=== PATIENT | female | born 1945 | race Caucasian/White ===

== ENCOUNTER → 2019-08-29 21:48 | Outpatient (CLI) | payer MEDICARE, SELFPAY ==
[2019-08-29 14:56] VITALS: BMI 25.2
[2019-08-29 21:58] LABS: Absolute Lymphocyte Count 1.15 X10^3/uL (0.83-4.51); Absolute Neutrophil Count 2.4 X10^3/uL (2.0-7.7); Basophil# 0.01 X10^3/uL; Basophil% 0.3 % (0-1); Hematocrit 44.2 % (37-47); Hemoglobin 14.2 g/dL (12.0-15.0); Lymphocyte # 1.15 X10^3/ul (4.0); Lymphocyte % 30.6 % (19-41); Mean Corp Hgb Conc 32.1 g/dL (32-36); Mean Corpuscular Hgb 30.1 pg (27.0-32.0); Mean Corpuscular Volume 93.8 fL (81-99); Monocyte# 0.24 X10^3/uL; Monocyte% 6.4 % (0-10); NRBC Flagged by Analyzer 0 % (0-5); Neutrophil # 2.35 X10^3/uL (2.7-7.7); Neutrophil % 62.4 % (47-70); Platelet Count 159 K/mm3 (150-450); RBC Distribution Width CV 12.4 % (11.6-14.6); RBC Distribution Width SD 43.3 fl (35.1-43.9); Red Blood Count 4.71 M/mm3 (4.2-5.4); White Blood Count 3.8 K/mm3 (4.4-11.0)
[2019-08-29 22:13] LABS: AST(SGOT) 51 U/L (15-37); Alanine Aminotransfer ALT/SGPT 56 U/L (13-56); Albumin, Serum 3.5 g/dL (3.2-5.0); Alkaline Phosphatase 142 U/L (45-117); Anion Gap 6 (5-15); BUN 9 mg/dL (7-18); BUN/Creat Ratio 13.1 RATIO (10-20); CRP, High Sensitivity Cardiac 1.02 mg/L; Calcium,Total 8.6 mg/dL (8.5-10.1); Chloride 106 mmol/L (98-107); Cholesterol 140 mg/dL (200); Creatinine, Serum 0.68 mg/dL (0.55-1.02); EST Glomerular Filtration Rate 89 mL/min (>60); Est Glom Filt Rate - Afr Amer 107 mL/min (>60); Globulin 3.4 g/dL (2.2-4.2); Glucose 100 mg/dL (74-106); High Density Lipoprotein 57 mg/dL; Potassium 4.2 mmol/L (3.5-5.1); Protein, Total 6.9 g/dL (6.4-8.2); Sodium Level 140 mmol/L (136-145); Triglycerides 91 mg/dL; Very Low Density Lipoprotein 18 mg/dL (5-40)
== END ==
PROVIDERS: Referring Provider Nurse Practitioner; Visit Provider Nurse Practitioner
DX: J40 Bronchitis, not specified as acute or chronic (principal); R07.9 Chest pain, unspecified
CPT/HCPCS: 80053; 80061; 84484; 85025; 86141

== ENCOUNTER → 2021-03-19 21:13 | Outpatient (CLI) | payer MEDICARE, SELFPAY ==
--- NOTE | 2021-03-19 21:14 | LES_PTH ---
PATIENT: DANIS OLVERA LOC: [facility] U#:[id number] AGE/SX: 80/F ROOM: RE03/19/[address]: RAQUEL Harper : 1945 BED: DIS: SPEC #: [id number] RECD: 03/20/21 09:25 STATUS: BISI HAN #: [id number] FAVIOLA: 03/19/21 21:[address]: Nivia Angel NP DEPT: SURGICAL PATHOLOGY RECD BY: Maribeth Villafana Tissues: Skin of hand and finger, NOS Procedures: Surgery Specimen Level IV HEADER OPERATION: Skin biopsy PRE-OP DIAGNOSIS: Left hand palm lesion TISSUE SUBMITTED: Left hand palm lesion MICROSCOPIC DIAGNOSIS Left hand palm lesion, biopsy: Basal cell carcinoma, fragmented. ENDER:tonya 03/21/2021 MICROSCOPIC DESCRIPTION Slides are reviewed. GROSS DESCRIPTION Received in fixative is one container labeled with the patient's name and designated left palm lesion vs wart. The specimen consists of multiple irregular fragments of das soft tissue that in aggregate measure 1 x 0.3 x 0.1 cm. The specimen is totally submitted in one cassette. / SJ:rg 03/20/21 TC:0 CPT: 20708
[2021-03-19 21:16] LABS: Pathology Skin Biopsy SEE PATHOLOGY REPORT
== END ==
PROVIDERS: Visit Provider Nurse Practitioner
DX: L98.9 Disorder of the skin and subcutaneous tissue, unspecified (principal)
CPT/HCPCS: 88305

== ENCOUNTER 2024-06-19 07:47 | Emergency (ER) | payer MEDICARE, SELFPAY ==
[2024-06-19 07:48] VITALS: BP 148/83; PULSE 86; RESP 16; TEMP 36.6; O2SAT 98; BMI 22.6
--- NOTE | 2024-06-19 08:23 | CT_ITS ---
HISTORY: Pain. TECHNIQUE: Helically acquired images were obtained of the abdomen and pelvis without oral or IV contrast. A radiation dose optimization technique was used for this scan. 414 images. COMPARISON: None. FINDINGS: LOWER CHEST: Lung bases clear. BOWEL: Bowel including appendix nondilated. No focal pericolonic inflammatory change. PERITONEUM: No significant free fluid. LIVER: Unremarkable. GALLBLADDER/BILIARY TREE: Absent gallbladder. SPLEEN: Calcified granulomas. PANCREAS/ADRENAL GLANDS: Nonenlarged. KIDNEYS AND URETERS: 2 mm right lower pole calculus. Mild bilateral hydronephrosis and distended extrarenal pelves without hydroureter or obstructing ureteral calculus identified. VESSELS: No abdominal aortic aneurysm. Mild atherosclerosis. PELVIC ORGANS: Absent uterus. BONES: Degenerative change and mild scoliosis. CT/Abdomen/Pelvis without Cont IMPRESSION: Mild bilateral hydronephrosis without hydroureter or obstructing ureteral calculus identified. 2 mm right renal calculus. Electronically Signed: Maria C Shin MD at 9:33 EST ,
--- NOTE | 2024-06-19 08:24 | EKG12_ITS ---
Test Reason : ABD PAIN Blood Pressure : */* mmHG Vent. Rate : 73 BPM Atrial Rate : 73 BPM P-R Int : 142 ms QRS Dur : 92 ms QT Int : 382 ms P-R-T Axes : -4 5 36 degrees QTcB Int : 420 ms Normal sinus rhythm Incomplete right bundle branch block Nonspecific T wave abnormality Abnormal ECG Confirmed by Albino Amador ([id number]), assignment editor JENNIFER MARIA ([id number]) on 06/21/2024 10:27:36 AM Referred By: Confirmed By: Albino Amador
--- NOTE | 2024-06-19 08:25 | EDS_ITS ---
HPI HPI - GI History of Present Illness Chief Complaint: Abd Pain Informant: patient Narrative Narrative: Patient is an 79-year-old female with history of constipation, partial hysterectomy and cholecystectomy presenting with diffuse abdominal pain. She states about 3 days ago she thought she something bad and had some crampy abdominal pain. She multiple bowel movements and her last 1 was loose. She felt better the next day but then starting yesterday she has had worsening abdominal pain again. She states that initial episode is not uncommon for her but the symptoms she is been having in the past day is new and unusual. She no raymond she had a small bowel movement yesterday morning. She denies any black or blood in her stool. She has associated nausea but no vomiting. She describes the pain more as a warmth and cramping sensation. She has a hard time localizing it but notes it does radiate to her back. She denies associated chest pain or shortness of breath. Denies any urinary symptoms. Has not had any vomiting. No other complaints or concerns reported at this time. [facility] Medical History (Updated 06/19/24 @ 10:[address] Alivia Mason DO) Asthma Home Medications ?Medication ?Instructions ?Recorded ?Last Taken ?Type famotidine 20 mg tablet (Pepcid) 20 mg PO DAILY #14 tabs 06/19/24 Unknown Rx ondansetron 4 mg disintegrating 4 mg PO Q8H PRN PRN Nausea #10 tabs 06/19/24 Unknown Rx tablet Allergy/AdvReac Type Severity Reaction Status Date / Time Iodinated Contrast Media (CT) Allergy Severe Hives Verified 06/19/24 07:47 Family History Other Cancer Heart disease Surgical History History of cholecystectomy History of total abdominal hysterectomy History of bladder suspension procedure Social History Smoking Status: Never smoker second hand exposure: No ROS ROS ED Constitutional Constitutional ED: Denies chills or fever(s) Respiratory/Chest Respiratory/Chest: Denies cough or dyspnea Gastrointestinal Gastrointestinal: Reports abdominal pain and nausea; Denies diarrhea or vomiting Genitourinary Genitourinary ED: Denies dysuria, hematuria or urinary frequency Musculoskeletal Musculoskeletal: Denies arthralgias or myalgias Neurologic Neurologic: Denies headache(s) or weakness Hematologic/Lymphatic Hematologic/Lymphatic: Denies easy bleeding or easy bruising EXAM Physical Exam Const Vital Signs: 06/19/24 07:48 Temperature 97.8 F Temperature Source Oral Pulse Rate 86 Respiratory Rate 16 Blood Pressure 148/83 H Blood Pressure Mean 104 Pulse Ox 98 Oxygen Delivery Method Room Air Positive well nourished and well developed General Appearance ED: well developed and NAD HEENT Reports moist mucous membranes normocephalic and atraumatic Eyes PERRL Neck supple Resp normal respiratory effort and clear to auscultation bilaterally Cardio regular rate and regular rhythm GI non-tender and no masses Inspection: Negative for abdominal distention Auscultation: hypoactive bowel sounds Palpation: soft; Negative for tender, guarding or rigid Back/Spine no CVA tenderness Extremity full ROM General Extremety ED: Negative for edema General Extremity: Negative for edema Neuro Sensorium / Orientation: alert, oriented to person, oriented to place and oriented to time Motor Exam: Negative for general weakness Psych mental status grossly normal and thought process normal Skin no wounds MDM MDM MDM Narrative Medical decision making narrative: Patient evaluated for diffuse abdominal pain. Has associated nausea. Differential includes referred ACS, diverticulitis, small bowel obstruction, ileus, pancreatitis, choledocholithiasis and urinary tract infection. Patient given Tylenol and Zofran. Vital signs normal. Will obtain workup including CT abdomen pelvis, CBC, CMP, lipase and urinalysis. Lab work largely normal. Patient is not have a leukocytosis or anemia. She is have a mild elevation of her alkaline phosphatase as well as bilirubin but she has normal AST and ALT as well as normal lipase. Urinalysis is not consistent with infection and no bacteria are seen. CT of the abdomen and pelvis does not show any acute process but does show mild bilateral hydronephrosis without hydroureter or obstructing ureteral calculus. There is a 2 mm right renal calculus. This is not consistent with her symptoms or presentation I suspect this is more of an incidental finding. Patient is informed of this and is given outpatient urology follow-up for this. EKG is not consistent with acute ischemia and I do not think further cardiac workup is indicated at this time. Patient does tell me that she has been more gassy lately with more belching and passing gas. Will start her on Pepcid which do not take a daily antiacid and also give a prescription for as needed Zofran. I repeat evaluation she states she is feeling a little better. Will discharge home. Counseled the exact cause her symptoms is not clear but she should return to the emergency room if she has progression or worsening of her symptoms specifically if she develops severe abdominal pain, blood in her stool, vomiting or fever. Encouraged to follow-up with her primary care doctor. Discharged home in improved and stable condition. Lab Data Labs: Laboratory Results - last 24 hr 06/19/24 06/19/24 08:26 09:40 WBC 6.0 RBC 4.60 Hgb 14.2 Hct 43.7 MCV 95.0 MCH 30.9 MCHC 32.5 RDW Std Deviation 43.7 RDW Coeff of Vidya 12.4 Plt Count 208 MPV 9.4 Immature Gran % (Auto) 0.200 Neut % (Auto) 82.9 H Lymph % (Auto) 12.6 L Guthrie % (Auto) 3.8 Eos % (Auto) 0.2 Baso % (Auto) 0.3 Absolute Neuts (auto) 5.0 Absolute Lymphs (auto) 0.76 L Nucleated RBC % 0 Sodium 140 Potassium 3.7 Chloride 105 Carbon Dioxide 26.0 Anion Gap 9 BUN 16 Creatinine 0.78 Estim Creat Clear Calc 39.62 Est GFR (MDRD) Af Amer 91 Est GFR (MDRD) Non-Af 75 BUN/Creatinine Ratio 20.5 H Glucose 113 H Calcium 9.1 Total Bilirubin 1.90 H AST 12 L ALT 16 Alkaline Phosphatase 150 H Total Protein 7.0 Albumin 3.7 Globulin 3.3 Albumin/Globulin Ratio 1.1 Lipase 37 Urine Color Yellow Urine Clarity Sl. Cloudy Urine pH 6.5 Ur Specific Sieper 1.010 Urine Protein 15 H Urine Glucose (UA) Normal Urine Ketones 15 H Urine Occult Blood 10 H Urine Nitrite Negative Urine Bilirubin Negative Urine Urobilinogen Normal Ur Leukocyte Esterase 100 H Urine RBC 0 SEEN Urine WBC 0-5 SEEN Ur Squamous Epith Cells 0-5 SEEN Urine Bacteria 0 SEEN Urine Mucus 0 SEEN Radiography Diagnostic Testing: Clinical Impression(s) from Imaging Studies Abdomen/Pelvis CT 06/19/24 08:23 IMPRESSION: Mild bilateral hydronephrosis without hydroureter or obstructing ureteral calculus identified. 2 mm right renal calculus. Electronically Signed: Maria C N. Kip, MD at 9:33 EST , Rhythm Strip Rhythm Strip: Sinus Rhythm Rate: 73 Ectopy: None EKG Initial EKG: Attestation: I personally reviewed and interpreted this EKG as follows: Interpretation: Sinus Rhythm Comments: Normal sinus rhythm rate of 73 bpm Normal axis Normal intervals with incomplete right bundle branch block Normal ST segments Discharge Plan Triage Chief Complaint: Abd Pain ED Provider: Alivia Mason Dx/Rx/DC Orders Clinical Impression: Nausea, Abdominal discomfort, Bilateral hydronephrosis Instructions: ED Abdominal Pain Unkn Cause Fem Prescriptions: New famotidine [Pepcid] 20 mg tablet 20 mg PO DAILY Qty: 14 0RF ondansetron 4 mg tablet,disintegrating 4 mg PO Q8H PRN PRN (Reason: Nausea) Qty: 10 0RF Primary Care Provider: Nivia Angel Referrals: Maya Gonzalez MD [Med Staff - Active Staff] - 1-2 Weeks Nivia Angel [Primary Care Provider] - Activity Restrictions/Additional Instructions: Your lab work today was largely normal. Your CT did not show any acute cause of your symptoms but did see that you have some increased fluid of the bilateral kidneys. The cause of this is uncertain but you been given a urologist to fol low-up with. Please call to schedule follow-up appointment. Please follow-up with your primary care doctor as needed with your symptoms. I have started you on an antacid and given you an as needed nausea medicine to see if this helps with your symptoms. Print Language: [place] Citizen Disposition Disposition: Home, Self Care
[2024-06-19 08:37] LABS: Absolute Lymphocyte Count 0.76 X10^3/uL (0.83-4.51); Basophil# 0.02 X10^3/uL; Basophil% 0.3 % (0-1); Eosinophil# 0.01 X10^3/uL; Eosinophils% 0.2 % (0-5); Hematocrit 43.7 % (37-47); Hemoglobin 14.2 g/dL (12.0-15.0); Lymphocyte # 0.76 X10^3/ul (0.83-4.51); Lymphocyte % 12.6 % (19-41); Mean Corp Hgb Conc 32.5 g/dL (32-36); Mean Corpuscular Hgb 30.9 pg (27.0-32.0); Mean Platelet Vol. 9.4 fl (6.2-12.0); Monocyte# 0.23 X10^3/uL; Monocyte% 3.8 % (0-10); NRBC Flagged by Analyzer 0 % (0-5); Neutrophil # 4.98 X10^3/uL (2.7-7.7); Neutrophil % 82.9 % (47-70); Platelet Count 208 K/mm3 (150-450); RBC Distribution Width CV 12.4 % (11.6-14.6); RBC Distribution Width SD 43.7 fl (35.1-43.9)
[2024-06-19 08:57] LABS: ALB/GLOB Ratio 1.1 RATIO (0.9-2.4); AST(SGOT) 12 U/L (15-37); Alanine Aminotransfer ALT/SGPT 16 U/L (13-56); Albumin, Serum 3.7 g/dL (3.2-5.0); Alkaline Phosphatase 150 U/L (45-117); Anion Gap 9 (5-15); BUN 16 mg/dL (7-18); BUN/Creat Ratio 20.5 RATIO (10-20); Calcium,Total 9.1 mg/dL (8.5-10.1); Chloride 105 mmol/L (98-107); Creatinine, Serum 0.78 mg/dL (0.55-1.02); EST Glomerular Filtration Rate 75 mL/min (>60); Est Glom Filt Rate - Afr Amer 91 mL/min (>60); Estimated Creatinine Clearance 39.62 ml/min; Globulin 3.3 g/dL (2.2-4.2); Glucose 113 mg/dL (74-106); Lipase 37 U/L (13-75); Potassium 3.7 mmol/L (3.5-5.1); Sodium Level 140 mmol/L (136-145)
[2024-06-19] MEDS: Acetaminophen 325 MG Tablet 650 MG PO (09:06)
[2024-06-19] MEDS: Ondansetron 4 MG/2 ML Vial IV (09:06)
[2024-06-19 09:47] LABS: Bacteria 0 SEEN /hpf (None Seen); Mucous, Urine 0 SEEN /hpf (<or=2+); Red Blood Cells-Urine 0 SEEN /hpf (0-5)
[2024-06-19 09:49] LABS: Color, Urine Yellow (Yellow); Glucose, Dipstick Normal (Normal); Ketone-Dipstick 15 mg/dl (Negative); Leukocyte Esterase-Dipstick 100 /ul (Negative); Nitrite-Dipstick Negative (Negative); Occult Blood-Urine 10 /ul (Negative); Protein-Dipstick 15 mg/dl (Negative); Urine Bilirubin Dipstick Negative (Negative); Urine Clarity Sl. Cloudy (Clear); Urine Urobilinogen Normal (Normal); Urine pH 6.5 (5.0 - 8.0)
[2024-06-19 09:56] LABS: Squamous Epithelial Cells - UA 0-5 SEEN /hpf (5-10); White Blood Cells 0-5 SEEN /hpf (0-5)
[2024-06-19 10:58] VITALS: BP 138/62; PULSE 67; RESP 15; TEMP 36.7; O2SAT 96
[2024-06-19] MEDS: Famotidine 20 MG Tablet PO (11:39)
== END 2024-06-19 11:40 | disposition home or self-care (01) ==
PROVIDERS: Emergency Provider Emergency Medicine; Visit Provider Emergency Medicine
DX: N13.30 Unspecified hydronephrosis (principal); R11.0 Nausea; N20.0 Calculus of kidney; Z90.710 Acquired absence of both cervix and uterus; Z90.49 Acquired absence of other specified parts of digestive tract; I45.10 Unspecified right bundle-branch block
CPT/HCPCS: 74176; 80053; 81001; 83690; 85025; 93005; 96374; 99284; A4216; J2405

== ENCOUNTER → 2025-06-14 | Outpatient (CLI) | payer MEDICARE, SELFPAY ==
--- OUTSIDE RECORDS SUMMARY | 2025-06-14 21:22 | XMS RPT_ITS | CCD ---
Author Organization [facility] ion Partnership [facility] Care Team Providers Care Shade Bander Name Role Phone LAYO ANGEL Primary Care Unavailable BRENTON MANNING Attending Unavailable Alivia Mason Attending Unavailable Layo Angel Primary Care Unavailable Allergies Allergy Classification Reported Allergen(s) Allergy Type Date of Onset Reaction(s) Facility (1 source) Iodine; Translations: [IODINE] Drug Allergy 10-23-2017 [facility] Other [facility] (1 source) Iodinated Contrast Media Drug allergy (disorder) 06-19-2024 [facility] Repository Problems Problem Classification Problem Date Documented Da te Episodic/Chronic Abdominal pain (1 source) Unspecified abdominal pain; Translations: [Unspecified abdominal pain] Onset: 08-24-2024 Episodic Other upper respiratory disease (1 source) Nasal congestion; Translations: [Nasal congestion] Onset: 03-18-2024 Episodic Unclassified (1 source) Facial pain; Translations: [Facial pain] Onset: 03-18-2024 Results Test Name Value Interpretation Reference Range Facil ity 12 Lead EKGon 06-19-2024 12 Lead EKG [facility] Cardiovascular Services [address] [place] [address] 12 Lead EKG 06/19/24 0858 MR#: [id number] Acct: [id number] Name: PAULINE OLVERA Rep #: [id number] : 1945 79 From: Albino Amador MD Attending Dr: Status: DEP ER Ordering Dr: Alivia Mason DO Date: 06/19/24 Location: ED Sex: F C Admitted: Test Reason : ABD PAIN Blood Pressure : */* mmHG Vent. Rate : 73 BPM Atrial Rate : 73 BPM P-R Int : 142 ms QRS Dur : 92 ms QT Int : 382 ms P-R-T Axes : -4 5 36 degrees QTcB Int : 420 ms Normal sinus rhythm Incomplete right bundle branch block Nonspecific T wave abnormality Abnormal ECG Confirmed by Albino Amador ([id number]), photo editor JENNIFER MARIA ([id number]) on 06/21/2024 10:27:36 AM Referred By: Confirmed By: Albino Amador 06/21/24 1027 Date Albino Amador MD CC: Layo Angel; Dr. Alivia Mason DO Signed Normal [facility] Abdomen/Pelvis without Conto n 06-19-2024 Abdomen/Pelvis without Cont [facility] Imaging Services [address] [place], [place] [address] Abdomen/Pelvis without Cont MR#: [id number] Acct: [id number] Name: PAULINE OLVERA Rep #: [id number] : 1945 F 79 From: Maria C moulton MD PCP: Layo Angel Status: REG ER Study: Abdomen/Pelvis without Cont Date of Exam: 05/28 11/17 Exam# [id number] Ordering Dr: Alivia Mason DO [id number] HISTORY: Pain. TECHNIQUE: Helically acquired images were obtained of the abdomen and pelvis without oral or IV contrast. A radiation dose optimization technique was used for this scan. 414 images. COMPARISON: None. FINDINGS: LOWER CHEST: Lung bases clear. BOWEL: Bowel including appendix nondilated. No focal pericolonic inflammatory change. PERITONEUM: No significant free fluid. LIVER: Unremarkable. GALLBLADDER/BILIARY TREE: Absent gallbladder. SPLEEN: Calcified granulomas. PANCREAS/ADRENAL GLANDS: Nonenlarged. KIDNEYS AND URETERS: 2 mm right lower pole calculus. Mild bilateral hydronephrosis and distended extrarenal pelves without hydroureter or obstructing ureteral calculus identified. VESSELS: No abdominal aortic aneurysm. Mild atherosclerosis. PELVIC ORGANS: Absent uterus. BONES: Degenerative change and mild scoliosis. CT/Abdomen/Pelvis without Cont IMPRESSION: Mild bilateral hydronephrosis without hydroureter or obstructing ureteral calculus identified. 2 mm right renal calculus. Electronically Signed: Maria C Shin MD at 9:33 EST , CC: Lyao Angel; Dr. Alivia Mason DO Marketing Underwriter: Signed Normal [facility] CBC W/Diff, Automatedon 05-28 Absolute Lymph 0.76 X10 3/uL Low 0.83-4.51 [facility] Comment on above: Performed By: #### L 500.4050, L100.0100, L501.2450 #### [facility] [address] [place], [address] Absolute Neut 5.0 X10 3/uL Normal 2.0-7.7 [facility] Comment on above: Performed By: #### L 500.4050, L100.0100, L501.2450 #### [facility] [address] [place], [address] Basophils/100 WBC (Bld) 0.3 % Normal 0-1 [facility] Comment on above: Performed By: #### L 500.4050, L100.0100, L501.2450 #### [facility] [address] [place], [address] Eosinophils/100 WBC (Bld) 0.2 % Normal 0-5 [facility] Comment on above: Performed By: #### L 500.4050, L100.0100, L501.2450 #### [facility] [address] [place], [address] Erythrocyte distribution width (RBC) [Ratio] 12.4 % Normal 11.6-14.6 [facility] Comment on above: Performed By: #### L 500.4050, L100.0100, L501.2450 #### [facility] [address] [place], [address] Hematocrit (Bld) [Volume fraction] 43.7 % Normal 37-47 [facility] Comment on above: Performed By: #### L 500.4050, L100.0100, L501.2450 #### [facility] [address] [place], [address] Hemoglobin (Bld) [Mass/Vol] 14.2 g/dL Normal 12.0-15.0 [facility] Comment on above: Performed By: #### L 500.4050, L100.0100, L501.2450 #### [facility] [address] [place], [address] IG% 0.200 Normal 0.0-0.9 [facility] Comment on above: Result Comment: IG% - Immature Granulocytes (promyelocytes, myelocytes and metamyelocytes) > 1% indicates that a LEFT SHIFT is Present. Performed By: #### L 500.4050, L100.0100, L501.2450 #### [facility] [address] [place], [address] Lymphocytes/100 WBC (Bld) 12.6 % Low 19-41 [facility] Comment on above: Performed By: #### L 500.4050, L100.0100, L501.2450 #### [facility] [address] [place], [address] MCH (RBC) [Entitic mass] 30.9 pg Normal 27.0-32.0 [facility] Comment on above: Performed By: #### L 500.4050, L100.0100, L501.2450 #### [facility] [address] [place], [address] MCHC (RBC) [Mass/Vol] 32.5 g/dL Normal 32-36 [facility] Comment on above: Performed By: #### L 500.4050, L100.0100, L501.2450 #### [facility] [address] [place], [address] MCV (RBC) [Entitic vol] 95.0 fL Normal 81-99 [facility] Comment on above: Performed By: #### L 500.4050, L100.0100, L501.2450 #### [facility] [address] [place], [address] Monocytes/100 WBC (Bld) 3.8 % Normal 0-10 [facility] Comment on above: Performed By: #### L 500.4050, L100.0100, L501.2450 #### [facility] [address] [place], [address] Neutrophils/100 WBC (Bld) 82.9 % High 47-70 [facility] Comment on above: Performed By: #### L 500.4050, L100.0100, L501.2450 #### [facility] [address] [place], [address] Nucleated RBC (Bld) [#/Vol] 0 10*3/uL Normal 0-5 [facility] Comment on above: Performed By: #### L 500.4050, L100.0100, L501.2450 #### [facility] [address] [place], [address] Platelet mean volume (Bld) [Entitic vol] 9.4 fL Normal 6.2-12.0 [facility] Comment on above: Performed By: #### L 500.4050, L100.0100, L501.2450 #### [facility] [address] [place], [address] Platelets (Bld) [#/Vol] 208 10*3/uL Normal 150-450 [facility] Comment on above: Performed By: #### L 500.4050, L100.0100, L501.2450 #### [facility] [address] [place], [address] RBC (Bld) [#/Vol] 4.60 10*6/uL Normal 4.2-5.4 [facility] Comment on above: Performed By: #### L 500.4050, L100.0100, L501.2450 #### [facility] [address] [place], [address] RDW SD 43.7 fl Normal 35.1-43.9 [facility] Comment on above: Performed By: #### L 500.4050, L100.0100, L501.2450 #### [facility] [address] [place], [address] WBC (Bld) [#/Vol] 6.0 10*3/uL Normal 4.4-11.0 [facility] Comment on above: Performed By: #### L 500.4050, L100.0100, L501.2450 #### [facility] [address] [place], [address] Comprehensive Metabolic Prof [facility] 06-19-2024 Albumin [Mass/Vol] 3.7 g/dL Normal 3.2-5.0 [facility] Comment on above: Performed By: #### L 500.4050, L100.0100, L501.2450 #### [facility] [address] [place], [address] Albumin/Globulin [Mass ratio] 1.1 {ratio} Normal 0.9-2.4 [facility] Comment on above: Performed By: #### L 500.4050, L100.0100, L501.2450 #### [facility] [address] [place], [address] ALK P 150 U/L High 45-117 [facility] Comment on above: Performed By: #### L 500.4050, L100.0100, L501.2450 #### [facility] [address] [place], [address] ALT [Catalytic activity/Vol] 16 U/L Normal 13-56 [facility] Comment on above: Performed By: #### L 500.4050, L100.0100, L501.2450 #### [facility] [address] [place], [address] AST [Catalytic activity/Vol] 12 U/L Low 15-37 [facility] Comment on above: Performed By: #### L 500.4050, L100.0100, L501.2450 #### [facility] [address] [place], [address] Bilirubin [Mass/Vol] 1.90 mg/dL High 0.20-1.00 [facility] Comment on above: Result Comment: For patients on eltrombopag therapy, use of Dimension Portia TBIL is not recommended. Performed By: #### L 500.4050, L100.0100, L501.2450 #### [facility] [address] [place], [address] BUN/CRE 20.5 RATIO High 10-20 [facility] Comment on above: Performed By: #### L 500.4050, L100.0100, L501.2450 #### [facility] [address] [place], [address] CA,Total 9.1 mg/dL Normal 8.5-10.1 [facility] Comment on above: Performed By: #### L 500.4050, L100.0100, L501.2450 #### [facility] [address] [place], [address] Chloride [Moles/Vol] 105 mmol/L Normal 98-107 [facility] Comment on above: Performed By: #### L 500.4050, L100.0100, L501.2450 #### [place] [facility] [address] [place], [address] CO2 [Moles/Vol] 26.0 mmol/L Normal 21.0-32.0 [facility] Comment on above: Performed By: #### L 500.4050, L100.0100, L501.2450 #### [facility] [address] [place], [address] Creatinine [Mass/Vol] 0.78 mg/dL Normal 0.55-1.02 [facility] Comment on above: Result Comment: The validity of the calculated GFR GFRAA in patients over 70 years has not been determined. Clinical correlation is essential. Performed By: #### L 500.4050, L100.0100, L501.2450 #### [facility] [address] [place], [address] ECRCL 39.62 ml/min Normal [facility] Comment on above: Performed By: #### L 500.4050, L100.0100, L501.2450 #### [facility] [address] [place], [address] EST GFR - AA 91 mL/min Normal >60 [facility] Comment on above: Result Comment: Afri can [place] GFR Calc Performed By: #### L 500.4050, L100.0100, L501.2450 #### [facility] [address] [place], [address] GAP 9 Normal 5-15 [facility] Comment on above: Performed By: #### L 500.4050, L100.0100, L501.2450 #### [facility] [address] [place], [address] GFR/1.73 sq M.predicted among non-blacks MDRD (S/P/Bld) [Vol rate/Area] 75 mL/min/{1.73_m2} Normal >60 [facility] Comment on above: Result Comment: Non- GFR Calc Performed By: #### L 500.4050, L100.0100, L501.2450 #### [facility] [address] [place], [address] Globulin (S) [Mass/Vol] 3.3 g/dL Normal 2.2-4.2 [facility] Comment on above: Performed By: #### L 500.4050, L100.0100, L501.2450 #### [facility] [address] [place], [address] Glucose [Mass/Vol] 113 mg/dL High 74-106 [facility] Comment on above: Result Comment: Fast ing Glucose result from 100 to 125 mg/dL suggests IMPAIRED HOMEOSTASIS per A.D.A. criteria. Performed By: #### L 500.4050, L100.0100, L501.2450 #### [facility] [address] [place], [address] Potassium [Moles/Vol] 3.7 mmol/L Normal 3.5-5.1 [facility] Comment on above: Performed By: #### L 500.4050, L100.0100, L501.2450 #### [facility] [address] [place], [address] Sodium [Moles/Vol] 140 mmol/L Normal 136-145 [facility] Comment on above: Performed By: #### L 500.4050, L100.0100, L501.2450 #### [facility] [address] [place], [address] T PROT 7.0 g/dL Normal 6.4-8.2 [facility] Comment on above: Performed By: #### L 500.4050, L100.0100, L501.2450 #### [facility] [address] [place], [address] Urea nitrogen [Mass/Vol] 16 mg/dL Normal - [facility] Comment on above: Performed By: #### L 500.4050, L100.0100, L501.2450 #### [facility] [address] [place], [address] Emergency Department Summary on 06-19-2024 Emergency Department Summary [facility] Medical Records Department [address] [place] [address] Emergency Department Summary 06/19/24 MR#: [id number] Acct: [id number] Name: PAULINE OLVERA Rep #: [id number] : 1945 79 From: Alivia Mason DO PCP: Layo Angel Status:REG ER Location: ED HPI HPI - GI History of Present Illness Chief Complaint: Abd Pain Informant: patient Narrative Narrative: Patient is an 79-year-old female with history of constipation, partial hysterectomy and cholecystectomy presenting with diffuse abdominal pain. She states about 3 days ago she thought she something bad and had some crampy abdominal pain. She multiple bowel movements and her last 1 was loose. She felt better the next day but then starting yesterday she has had worsening abdominal pain again. She states that initial episode is not uncommon for her but the symptoms she is been having in the past day is new and unusual. She notes she had a small bowel movement yesterday morning. She denies any black or blood in her stool. She has associated nausea but no vomiting. She describes the pain more as a warmth and cramping sensation. She has a hard time localizing it but notes it does radiate to her back. She denies associated chest pain or shortness of breath. Denies any urinary symptoms. Has not had any vomiting. No other complaints or concerns reported at this time. [facility] Medical History (Updated 06/19/24 @ 10:[address] Alivia Mason, DO) Asthma Home Medications ???Medication ???Instructions ???Recorded ???Last Taken ???Type famotidine 20 mg tablet (Pepcid) 20 mg PO DAILY #14 tabs 06/19/24 Unknown Rx ondansetron 4 mg disintegrating 4 mg PO Q8H PRN PRN Nausea #10 tabs 06/19/24 Unknown Rx tablet Allergy/AdvReac Type Severity Reaction Status Date / Time Iodinated Contrast Media (CT) Allergy Severe Hives Verified 06/19/24 07:47 Family History Other Cancer Heart disease Surgical History History of cholecystectomy History of total abdominal hysterectomy History of bladder suspension procedure Social History Smoking Status: Never smoker second hand exposure: No ROS ROS ED Constitutional Constitutional ED: Denies chills or fever(s) Respiratory/Chest Respiratory/Chest: Denies cough or dyspnea Gastrointestinal Gastrointestinal: Reports abdominal pain and nausea; Denies diarrhea or vomiting Genitourinary Genitourinary ED: Denies dysuria, hematuria or urinary frequency Musculoskeletal Musculoskeletal: Denies arthralgias or myalgias Neurologic Neurologic: Denies headache(s) or weakness Hematologic/Lymphatic Hematologic/Lymphatic : Denies easy bleeding or easy bruising EXAM Physical Exam Const Vital Signs: 06/19/24 07:48 Temperature 97.8 F Temperature Source Oral Pulse Rate 86 Respiratory Rate 16 Blood Pressure 148/83 H Blood Pressure Mean 104 Pulse Ox 98 Oxygen Delivery Method Room Air Positive well nourished and well developed General Appearance ED: well developed and NAD HEENT Reports moist mucous membranes normocephalic and atraumatic Eyes PERRL Neck supple Resp normal respiratory effort and clear to auscultation bilaterally Cardio regular rate and regular rhythm GI non-tender and no masses Inspection: Negative for abdominal distention Auscultation: hypoactive bowel sounds Palpation: soft; Negative for tender, guarding or rigid Back/Spine no CVA tenderness Extremity full ROM General Extremety ED: Negative for edema General Extremity: Negative for edema Neuro Sensorium / Orientation: alert, oriented to person, oriented to place and oriented to time Motor Exam: Negative for general weakness Psych mental status grossly normal and thought process normal Skin no wounds MDM MDM MDM Narrative Medical decision making narrative: Patient evaluated for diffuse abdominal pain. Has associated nausea. Differential includes referred ACS, diverticulitis, small bowel obstruction, ileus, pancreatitis, choledocholithiasis and urinary tract infection. Patient given Tylenol and Zofran. Vital signs normal. Will obtain workup including CT abdomen pelvis, CBC, CMP, lipase and urinalysis. Lab work largely normal. Patient is not have a leukocytosis or anemia. She is have a mild elevation of her alkaline phosphatase as well as bilirubin but she has normal AST and ALT as well as normal lipase. Urinalysis is not consistent with infection and no bacteria are seen. CT of the abdomen and pelvis does not show any acute process but does show mild bilateral hydronephrosis without hydroureter or obstructing ureteral calculus. There is a 2 mm rig (more content not included)... Normal [facility] Lipaseon 06-19-2024 Lipase [Catalytic activity/Vol] 37 U/L Normal 13-75 [facility] Comment on above: Result Comment: Beni yan note: LIPASE revised reference range effective 22. New Lipase methodology. Expected to produce lower values than the previous assay method. NEW Reference Range: 13 - 75 U/L Performed By: #### L 500.4050, L100.0100, L501.2450 #### [facility] [address] [place], [address] Urinalysis, Completeon 06-19 EPI,SQUAMOUS 0-5 SEEN Normal 5-10 [facility] Comment on above: Order Comment: CLEAN CATCH Performed By: #### L 400.0001 #### [facility] [address] [place], [address] WBC 0-5 SEEN Normal 0-5 [facility] Comment on above: Order Comment: CLEAN CATCH Performed By: #### L 400.0001 #### [facility] [address] [place], [address] BACTERIA 0 SEEN Normal None Seen [facility] Comment on above: Order Comment: CLEAN CATCH Performed By: #### L 400.0001 #### [facility] [address] [place], [address] Mucus Ql (Urine sed) 0 SEEN Normal [facility] Comment on above: Order Comment: CLEAN CATCH Performed By: #### L 400.0001 #### [facility] [address] [place], [address] RBC 0 SEEN Normal 0-5 [facility] Comment on above: Order Comment: CLEAN CATCH Performed By: #### L 400.0001 #### [facility] [address] [place], [address] ED NOTEon 03-18-2024 ED NOTE HNO ID: [id number] Author: MARIELA NAVARRETE RN Service: ? Author Type: Registered Nurse Type: ED Notes Filed: 03/18/2024 13:51 Note Text: Pt verbalized d/c instructions and the need to follow up and to take rx Normal [facility] ED NOTE HNO ID: [id number] Author: MARIELA NAVARRETE RN Service: ? Author Type: Registered Nurse Type: ED Notes Filed: 03/18/2024 12:59 Note Text: Pt medicated for pain Normal [facility] ED NOTE HNO ID: [id number] Author: MARIELA NAVARRETE RN Service: ? Author Type: Registered Nurse Type: ED Notes Filed: 03/18/2024 12:04 Note Text: Pt given warm blanket. Pt states feels tightness in sinus area Normal [facility] ED PROV NOTEon 03-18-2024 ED PROV NOTE HNO ID: [id number] Author: BRENTON MANNING DO Service: Emergency Medicine Author Type: Physician Type: ED Provider Notes Filed: 03/18/2024 13:06 Note Text: ED Provider Note Patient Name: Pauline Olvera : 1945 SERVICE DATE: 03/18/24 History Patient presents with: Earache: Bilateral earache R more than L x 3 weeks. Has an occipital headache but denies any other symptoms. On Z-faraz for sinus infection currently prescribed by PCP. Associated chills Headache HPI 79-year-old female presents today for congestion. Patient states that she started a Z-Faraz about 2 days ago from her PCP and she has taken 2 doses. States that she has had intermittent congestion for the last few weeks. Is unsure when it began. Denies any nasal drainage, cough, ear drainage. States that she has tightness in her bilateral ears. Endorses tightness behind her ears but denies any headache, contrary to triage note. Patient notes that she does have seasonal allergies. States that she was on daily allergy medication but has not been taking it. Does endorse chills but states that she has chills intermittently at baseline. Patient states that she did take a Tylenol last night that helped/resolved her symptoms. States that she has not taken it since because she does not like taking medications. Patient states that she has been having trouble sleeping but notes that this is secondary to significant stressors within her family. Denies any falls, trauma, nausea, vomiting, chest pain, shortness of breath, abdominal pain, weakness, numbness, fevers, neck pain, painful neck movement, dysuria, hematuria, diarrhea. PAST MEDICAL HISTORY 10/23/2017: Acute gallstone pancreatitis 08/31/2019: Acute respiratory failure with hypoxia (HCC) Comment: 88% with exertion she does have bronchospasm and was hyperventilating to maintain oxygen saturation in the low nineties using all accessory muscles. No date: DVT (deep venous thrombosis) ([facility]) Comment: after of son 11/09/2017: Vaginal yeast infection PAST SURGICAL HISTORY 10/26/2017: CHOLECYSTECTOMY Comment: No date: CHOLECYSTECTOMY HX No date: HYSTERECTOMY HX FAMILY HISTORY Problem Relation Age of Onset Heart Father Social History Tobacco Use Smoking status: Never Smokeless tobacco: Never Substance and Sexual Activity Alcohol use: No Drug use: Never Sexual activity: Not on file ALLERGIES Allergen Reactions Contrast Dye [Iodin* Rash Review of Systems Constitutional: Negative for fever. HENT: Positive for congestion and sinus pain. Negative for rhinorrhea. Respiratory: Negative for cough and shortness of breath. Cardiovascular: Negative for chest pain and leg swelling. Gastrointestinal: Negative for abdominal pain, diarrhea, nausea and vomiting. Physical Exam Vitals [03/18/24 1136] BP Pulse Temp Temp src Resp SpO2 Weight Height 90/59 (!) 91 36.8 ?C (98.2 ?F) Temporal 17 95 % 54 kg (119 lb) 1.524 m (5') Physical Exam Constitutional: General: She is not in acute distress. Appearance: She is not ill-appearing, toxic-appearing or diaphoretic. HENT: Head: Normocephalic. Comments: No facial pain or TTP of b/l sinuses Right Ear: Tympanic membrane normal. No mastoid tenderness. Tympanic membrane is not perforated, erythematous, retracted or bulging. Left Ear: Tympanic membrane normal. No mastoid tenderness. Tympanic membrane is not perforated, erythematous, retracted or bulging. Ears: Comments: No posterior auricular tenderness to palpation, warmth or erythema Nose: Nose normal. No congestion or rhinorrhea. Mouth/Throat: Mouth: Mucous membranes are moist. Pharynx: No oropharyngeal exudate or posterior oropharyngeal erythema. Eyes: Extraocular Movements: Extraocular movements intact. Right eye: Normal extraocular motion. Left eye: Normal extraocular motion. Pupils: Pupils are equal, round, and reactive to light. Cardiovascular: Rate and Rhythm: Normal rate and regular rhythm. Pulses: Normal pulses. Pulmonary: Effort: Pulmonary effort is normal. No respiratory distress. Breath sounds: No wheezing. Comments: Clear to auscultation bilaterally with good air movement. Abdominal: Palpations: Abdomen is soft. Tenderness: There is no abdominal tenderness. There is no guarding. Musculoskeletal: Cervical back: Neck supple. No rigidity or tenderness. Right lower leg: No edema. Left lower leg: No edema. Skin: Capillary Refill: Capillary refill takes less than 2 seconds. Neurological: Mental Status: She is alert. Comments: Alert, answering questions appropriately. Moving all extremities equal strength. Ambulating throughout the ED with ease. EOMI intact. Tongue protrudes midline, palate elevates symmetrically. No facial droop, no slurred speech. Strength 5/5 BUE, BLE. Dull sensation intact BUE, BLE. Diagnostic Testing ED Labs Ordered and Reviewed - No data to display Proc (more content not included)... [facility] Outreach ([facility]) PAULINE OLVERA ([id number]) 1945 F Date Time Provider Department 09/11/20 BEC[facility]OPKINS During your visit today, we recorded the following information about you: Allergies As of Date: 09/11/2020 Noted Allergy Reaction CONTRAST DYE (IODINE) 10/23/2017 2 - Rash Date Reviewed: 09/01/2019 Reviewed by: Malcolm Philip MD - Fully Assessed Order(s):SARS-COVID VACCINE 1ST DOSE APPT [[id number]] Order #: [id number] FUTURE Prescriptions as of 09/11/2020 Sig: BENZONATATE 100 MG CAPSULE Take 2 capsules by mouth thre* PROAIR RESPICLICK 90 MCG/ACTU* Inhale 2 Inhalation as instru* PROMETHAZINE 12.5 MG TABLET Take 12.5 mg by mouth three t* Problem List As Of Date 09/11/2020 Noted Resolved Acute gallstone pancreatitis [K85.10] 10/23/2017 08/30/2019 Vaginal yeast infection [B37.3] 11/09/2017 08/30/2019 Influenza B [J10.1] 08/30/2019 More... DVT (deep vein thrombosis) in [O22.30]08/30/2019 More... Influenza due to influenza virus, type B [J10.1]08/30/2019 Transaminitis [R74.01] 08/30/2019 More... Other chest pain [R07.89] 08/30/2019 More... Acute respiratory failure with hypoxia (HCC) [J*08/31/2019 09/01/2019 More... Bronchospasm with bronchitis, acute [J20.9] 08/31/2019 More... Letter Text Encounter Status:Closed by FRANCIS, PRODUSER on 09/14/20 Normal [facility] Encounters Encounter Date Encounter Type Care Provider Facility Start: 06-19-2024 End: 06-19-2024 Emergency department patient visit [facility] Facility:[facility] Start: 03-18-2024 End: 03-18-2024 Emergency department patient visit LAYO ANGEL Facility:[facility] Payers Date Payer Category Payer Self-pay 2023 Medicare [id number] Unknown [id number] Summary Purpose Family History No Family History Records FoundNo Family History Records FoundNo Family History Records Found Advance Directives No Advanced Directives Records FoundNo Advanced Directives Records FoundNo Advanced Directives Records Found Additional Source Comments INFORMATION SOURCE (unrecogn ized section and content) DATE CREATED AUTHOR 09/15/2020 [facility] DATE CREATED AUTHOR AUTHOR'S ORGANIZ ATION 03/20/2024 [facility] DATE CREATED AUTHOR AUTHOR'S ORGANIZ ATION 08/26/2024 [facility] FOR RECORDS PERTAINING TO PATIENTS WHO ARE OR HAVE BEEN ENROLLED IN A CHEMICAL DEPENDENCY/SUBSTANCEABUSE PROGRAM, SOME INFORMATION MAY BE OMITTED. This clinical summary was aggregated from multiple sources. Caution should be exercised in using it in the provision of clinical care. This summary normalizes information from multiple sources, and as a consequence, information in this document may materially change the coding, format and clinical context of patient data. In addition, data may be omitted in some cases. CLINICAL DECISIONS SHOULD BE BASED ON THE PRIMARY CLINICAL RECORDS. [facility] [employer] provides no warranty or guarantee of the accuracy or completeness of information in this document.
[2025-06-14 21:34] LABS: Hematocrit 42.7 % (37-47); Hemoglobin 13.8 g/dL (12.0-15.0); Immature Granulocytes Count 0.020 X10^3/uL (0.0-0.0); Mean Corp Hgb Conc 32.3 g/dL (32-36); Mean Corpuscular Volume 95.7 fL (81-99); Mean Platelet Vol. 10.3 fl (6.2-12.0); NRBC Flagged by Analyzer 0 % (0-5); Platelet Count 227 K/mm3 (150-450); RBC Distribution Width CV 12.2 % (11.6-14.6); RBC Distribution Width SD 43.3 fl (35.1-43.9); Red Blood Count 4.46 M/mm3 (4.2-5.4); White Blood Count 6.2 K/mm3 (4.4-11.0)
[2025-06-14 21:54] LABS: AST(SGOT) 21 U/L (<=31); Alanine Aminotransfer ALT/SGPT 10 U/L (<=34); Albumin, Serum 4.2 g/dL (3.4-4.8); Alkaline Phosphatase 148 U/L (35-104); Anion Gap 7 (5-15); BUN 13 mg/dL (4-19); BUN/Creat Ratio 18.0 RATIO (10-20); Calcium,Total 9.5 mg/dL (7.6-11.0); Carbon Dioxide 28.4 mmol/L (21.0-32.0); Chloride 103 mmol/L (98-108); Cholesterol 187 mg/dL (<=200); Globulin 2.7 g/dL (2.2-4.2); Glucose 121 mg/dL (70-99); Lipase 35 U/L (13-75); Low Density Lipoprotein Calc. 95 mg/dL; Potassium 4.5 mmol/L (3.3-5.1); Triglycerides 80 mg/dL; Very Low Density Lipoprotein 16 mg/dL (5-40); cholesterol:hdl ratio screen 2.42
== END | disposition home or self-care (01) ==
PROVIDERS: PCP Nurse Practitioner; Visit Provider Nurse Practitioner
DX: R07.9 Chest pain, unspecified (principal); R10.9 Unspecified abdominal pain
CPT/HCPCS: 80053; 80061; 83690; 85025; 87086; 87088